=== PATIENT | male | born 1955 ===

== ENCOUNTER 2017-08-15 06:27 | Day surgery (SDC) | payer BC ==
[~2017-08-15 06:27] MED LIST: Acetaminophen TAB* 325 MG PO PRN; Buffered Lidocaine 0.9% SYRIN* 5 ML/SYR SYRINGE INTRADERM ONE
[2017-08-15] MEDS ORDERED: Midazolam* 1 MG/ML 2 ML VIAL (2 MG) ONE ×2 (07:26→07:30)
[2017-08-15] MEDS ORDERED: Phenylephrine 2.5% OPTH.SOL* 2 ML BTL ONE (07:49)
[2017-08-15] MEDS ORDERED: Tetracaine 0.5% OPTH.SOL 4 ML* 1 DROP BTL ONE (07:49)
[2017-08-15] MEDS ORDERED: Lidocaine 1% MPF* 2 ML VIAL ONE (07:49)
[2017-08-15] MEDS ORDERED: Cyclopentolate 1% OPTH.SOL* 2 ML BTL ONE (07:49)
[2017-08-15] MEDS ORDERED: acetaZOLAMIDE TAB* 250 MG ONE (07:49)
[2017-08-15] MEDS ORDERED: Ketorolac 0.5% OPHTH (NF) 0.5 % 5 ML BTL ONE (07:49)
[2017-08-15] MEDS ORDERED: Tropicamide 1% OPTH.SOL* BTL ONE (07:49)
[2017-08-15] MEDS ORDERED: Povidone Iodine 5% OPTH* 30 ML BTL ONE (07:49)
[2017-08-15] MEDS ORDERED: Neomycin/Polymy/Dex OPHTH.OIN* 3.5 GM ONE (07:49)
[2017-08-15 08:08] VITALS: BP 119/69
--- NOTE | 2017-08-16 03:48 | OP ---
DATE OF OPERATION: 08/15/17 - [facility] DATE OF : 53 SURGEON: Goran Schultz MD ANESTHESIA: Monitored anesthesia care. PRE-OP DIAGNOSIS: Cataract, left eye with pseudoexfoliation. POST-OP DIAGNOSIS: Cataract, left eye with pseudoexfoliation. OPERATIVE PROCEDURE: Extracapsular cataract extraction of the left eye with intraocular lens implant and capsular tension ring. IMPLANTS: SN60WF 17.0 diopter lens to the left eye and size 11 capsular tension ring. COMPLICATIONS: None. DESCRIPTION OF PROCEDURE: The patient was given phenylephrine 2.5% and cyclopentolate 1% eyedrops to the operative eye in the preoperative area. The patient was brought to the operating room where a time-out was taken to identify the correct patient, site and side of the surgery. The patient's left eye was prepped and draped in the usual sterile fashion with 5% Betadine and then rinsed. A second time-out was taken to verify the correct patient, site and side of surgery, and correct lens selection. A lid speculum was placed in the left eye. A 1-mm paracentesis blade was used to make a clear corneal incision in the inferotemporal position. Preservative-free 1% lidocaine was injected into the anterior chamber. DisCoVisc was then injected into the anterior chamber. A 2.75- mm keratome blade was used to make a triplanar incision at the superotemporal position. A cystotome initiated a capsulorrhexis , which was completed with Utrata forceps in a continuous and curvilinear manner. Hydrodissection of the lens was performed with BSS on a cannula. The lens could be spun in the capsular bag. The phacoemulsification handpiece was used with a [id number]-[id number] technique to remove the nucleus in its entirety with 12.89 CDE. The I/A handpiece then removed the residual cortical lens material. DisCoVisc was injected to inflate the capsular bag. A size 11 CTR ring was then inserted due to the patient's pseudoexfoliation. The planned SN60WF 17.0 diopter lens was injected into the capsular bag. The residual DisCoVisc was removed from the eye with the I/A handpiece. The corneal incisions were hydrated and no leaks occurred at physiologic pressure around 20 mmHg per palpation. The lid speculum was removed and drapes removed. Maxitrol ointment was placed to the surface of the operative eye. An adhesive patch and shield were then placed on the operative eye. The patient was taken to the postoperative area in stable condition. [id number] #: [id number] MTDD
== END 2017-08-15 08:20 | disposition home or self-care (01) ==
LOC: OREAST 06:27
PROVIDERS: ATTEND Student in an Organized Health Care Education/Training Program
DX: H25.12 Age-related nuclear cataract, left eye (principal); H40.1420 Capsular glaucoma with pseudoexfoliation of lens, left eye, stage unspecified; H53.8 Other visual disturbances; H35.3131 Nonexudative age-related macular degeneration, bilateral, early dry stage; Z87.891 Personal history of nicotine dependence; I10 Essential (primary) hypertension; E53.8 Deficiency of other specified B group vitamins; M19.90 Unspecified osteoarthritis, unspecified site; I34.0 Nonrheumatic mitral (valve) insufficiency
CPT/HCPCS: A9270-GY; J2250; V2632